=== PATIENT | female | born 1980 | race Two or more races ===

== ENCOUNTER 2025-01-06 20:43 | Emergency (ER) | payer MEDICAID, SELFPAY ==
[2025-01-06 20:43] VITALS: BMI 20.4
[2025-01-06 22:08] VITALS: BP 131/83; PULSE 99; RESP 20; TEMP 36.9; O2SAT 96
--- NOTE | 2025-01-06 22:42 | PD.EDBACK ---
ED Back Injury Pain RME/HPI General Chief Complaint: Back Pain/Injury Stated Complaint: LOWER BACK PAIN , SENT BY PMD Time Seen by Provider: 01/06/25 21:28 Arrival date/time: 01/06/25 20:43 44-year-old female sent in by primary care provider for lower back pain. Patient states that while at the primary care provider's office she tested positive for strep pharyngitis as she was being evaluated for sore throat and bodyaches. Patient also states that she had a urine analysis which was negative. She denies any dysuria urinary urgency or frequency diarrhea constipation blood or mucus in stools. Patient states that she has been taking Tylenol and ibuprofen with no improvement of her symptoms Limitations: no limitations Related Data Home Medications ?Medication ?Instructions ?Recorded ?Confirmed metformin 500 mg tablet 500 mg PO QDAY Diabetes Type 2 09/02/22 08/29/23 lisinopril 20 mg tablet 20 mg PO QDAY Hypertension 01/03/23 08/29/23 ferrous sulfate 325 mg (65 mg 325 mg PO QDAY 08/29/23 08/29/23 iron) tablet (FeroSul) folic acid 1 mg tablet 1 mg PO QDAY 08/29/23 08/29/23 Previous Rx's ?Medication ?Instructions ?Recorded ondansetron 4 mg disintegrating 4 mg PO Q8H PRN nausea and 12/18/23 tablet vomiting #20 tabs cephalexin 500 mg capsule 500 mg PO Q12H 10 days #20 caps 01/07/25 Allergies Allergy/AdvReac Type Severity Reaction Status Date / Time No Known Allergies Allergy Verified 12/18/23 17:55 Review of Systems Constitutional Constitutional: Reports chills, Reports fever(s) and Denies headache(s) ENT Ears, Nose, Mouth, and Throat: Denies dizziness, Denies headache(s), Reports sore throat and Denies throat swelling Cardiovascular Cardiovascular: Denies chest pain and Denies dyspnea Respiratory Respiratory: Denies cough and Denies dyspnea Gastrointestinal Gastrointestinal: Reports abdominal pain (mild), Denies hematochezia, Denies loose stools, Reports nausea and Reports vomiting Genitourinary Genitourinary: Denies dysuria, Reports flank pain and Denies pelvic pain Musculoskeletal Musculoskeletal: Reports back pain and Reports myalgias Integumentary/Breasts Skin/Breast: Denies rash and Denies skin pain Neurologic Neurologic: Denies dizziness and Denies headache(s) Allergic/Immunologic Allergic/Immunologic: Denies throat swelling Past Medical History Past Medical History NEUROLOGIC: Negative Neurological Disorders CARDIAC: Positive Cardiac Disorders and Hypertension; Negative Congestive Heart Failure RESPIRATORY: Negative Chronic Obstructive Pulmonary Disease (COPD) or Asthma GASTROINTESTINAL: Positive Gastrointestinal Disorders and Pancreatitis GENITOURINARY: Negative Genitourinary Disorders or Renal Disease MUSCULOSKELETAL: Negative Musculoskeletal Disorders ENDOCRINE: Positive Endocrine Disorders and Diabetes Mellitus Type 2; Negative Diabetes Mellitus Type 1 HEMATOLOGIC: Positive Blood Disorders and Anemia; Negative Sickle Cell Disease OTHER HISTORY: Positive Hospitalization; Negative Autoimmune Disease, Down Syndrome, Developmental Delay, Falls, Blood Transfusions, Anesthesia Reactions, Chicken Pox, Measles or Mumps Family History FAMILY HISTORY: Negative Family Respiratory Disorders, Family Cardiac Disorders or Family Gastrointestinal Problems Social History SMOKING STATUS: Never smoker SECOND HAND EXPOSURE: No SUBSTANCE USE: does not use 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 ED Exam General Limitations: Present no limitations General appearance: Present alert and in no apparent distress Head Head exam: Present atraumatic Eye Eye exam: Present normal appearance, PERRL and EOMI ENT ENT exam: Present normal exam, normal oropharynx and mucous membranes moist Neck Neck exam: Present normal inspection, full ROM and trachea midline Chest Chest inspection: Present normal inspection and symmetric chest wall rise Respiratory Respiratory exam: Present normal lung sounds bilaterally Cardiovascular Cardiovascular exam: Present regular rate, normal rhythm and normal heart sounds Abdominal Exam Abdominal exam: Present soft, tenderness and normal bowel sounds; Absent distention, guarding, rebound, ascites, mass or bruit Abdominal tenderness: Present diffuse and mild Extremities Exam Extremities exam: Present normal inspection and full ROM Back Exam Back exam: Present normal inspection, full ROM and CVA tenderness (R); Absent CVA tenderness (L) Neurological Exam Neurological exam: Present alert, oriented X3 and CN II-XII intact Psychiatric Psychiatric exam: Present normal affect and normal mood Skin Skin exam: Present warm, dry, intact and normal color Course Course Course Narrative: 44-year-old female sent in by primary care provider for lower back pain fever and chills and a sore throat. Patient's COVID and influenza test are negative CBC and CMP with no significant changes hCG is negative strep pharyngitis is negative urinalysis indicative of acute cystitis abdominal CT negative for evidence of stones. Patient received a gram of Rocephin IM she is stable nontoxic-appearing with stable vital signs she will be discharged home with oral antibiotics advised on hydrating and following up with primary care provider in 48 hours. Patient is advised to return to the emergency department if symptoms should worsen. I discussed this care plan with Dr. Hathaway and he agreed with the plan Quality Measures none Orders Category Date Time Status Bedside COVID-19 Antigen Test NOW Care 01/06/25 22:41 Active Bedside Influenza A&B Antigen Test NOW Care 01/06/25 22:[address] abdomen pelvis wo con Stat Exams 01/06/25 22:56 Taken CBC Stat Lab 01/07/25 02:28 Completed CMP [Comprehensive Metabolic Panel] Stat Lab 01/07/25 02:28 Completed HCG Qualitative,Urine Stat Lab 01/06/25 23:25 Completed Strep A Rapid Stat Lab 01/06/25 23:00 Completed UA, C/S IF [Urinalysis, C/S if Indicated] Stat Lab 01/06/25 23:25 Completed Urine Culture Stat Lab 01/06/25 23:25 Received Metoclopramide Inj [Reglan Inj] Med 01/06/25 23:42 Discontinued 10 mg IM X1 ONE Promethazine Inj [Phenergan Inj] Med 01/06/25 22:55 Discontinued 12.5 mg IM X1 ONE cefTRIAXone [Rocephin] 1,000 mg Med 01/07/25 03:57 Discontinued Lidocaine 1% 20 ml [Xylocaine 1% 20 ML] 2.1 ml IM X1 Vital Signs Vital signs: Vital Signs Temperature 98.5 F 01/06/25 22:08 Pulse Rate 99 01/06/25 22:08 Respiratory Rate 20 01/06/25 22:08 Blood Pressure 131/83 H 01/06/25 22:08 Pulse Oximetry (%) 96 01/06/25 22:08 Oxygen Delivery Method Room Air 01/06/25 22:08 Back Pain / Injury Patient data External records reviewed:: None Clinical information provided by:: patient Social determinants that could affect healthcare access:: none Patient has the following chronic illnesses:: DM How is presenting disease/condition affected by chronic disease/condition?: uneffected by Evaluation data The following diagnostics were reviewed and interpreted by me:: lab results and radiology exam(s) Lab and/or radiology exams considered but not ordered:: none Interpretation Summary: CMP CBC unremarkable, urinalysis indicative of UTI, strep test negative Medications / Prescriptions Medications or Prescriptions considered but not ordered:: None Medication administrations:: Medication Administration History Discontinued Medications Ceftriaxone Sodium 1,000 mg/ (Lidocaine HCl 2.1 ml) 0 mg IM X1 ONE Stop: 01/07/25 03:58 Last Admin: 01/07/25 04:24 Dose: 2.1 mg Documented By: EDWARD Metoclopramide HCl (Metoclopramide Inj 5 Mg/Ml Vial 2 Ml) 10 mg IM X1 ONE; Protocol Stop: 01/06/25 23:43 Last Admin: 01/07/25 00:16 Dose: 10 mg Documented By: NAHOMY Promethazine HCl (Promethazine Inj 25 Mg/Ml Vial) 12.5 mg IM X1 ONE; Protocol Stop: 01/06/25 22:56 Last Admin: 01/07/25 00:16 Dose: Not Given Documented By: NAHOMY Non-Admin Reason: Discontinued As above Consultations Consultation(s) initiated? (list below): No Diagnosis Most likely diagnosis given after review of the tests above:: Acute cystitis Admission Indicated Admission indicated?: not indicated Admission Request Was there a request for admission?: No Disposition Plan Disposition Plan: Discharge Discharge Attestation Discharge Attestation: The patient and all family members were given an opportunity to ask questions and understood the discharge instructions. Discharge instructions specifically effects, indications for sooner follow up or return to the emergency department, and the expected course of current diagnosis. Patient condition: Stable Discharge Plan Plan Patient Disposition: HOME (Self Care) Prescriptions/Referrals Prescriptions/Med Rec: New cephalexin 500 mg capsule 500 mg PO Q12H 10 Days Qty: 20 0RF No Action metformin 500 mg Tablet 500 mg PO QDAY ferrous sulfate [FeroSul] 325 mg (65 mg iron) tablet 325 mg PO QDAY Patient Comments: take 1 tablet by mouth every other day folic acid 1 mg tablet 1 mg PO QDAY Patient Comments: take 1 tablet by mouth once daily lisinopril 20 mg Tablet 20 mg PO QDAY ondansetron 4 mg tablet,disintegrating 4 mg PO Q8H PRN (Reason: nausea and vomiting) Qty: 20 0RF Referrals: Jerome Mercado MD [Primary Care Provider, Family Practice] - In 1 week Problem List Clinical Impression: UTI (lower urinary tract infection) Patient/Caregiver Discharge Instructions Discharge Activity: activity as tolerated Education Materials: ED CYSTITIS Female Adult Additional Instructions: Take medication as directed drink plenty of water follow-up with your primary care provider in 48 hours for reevaluation. If symptoms worsen return to emergency department immediately Print Language: Thai Stand Alone Forms: [employer] Award Info., Patient Portal Info Letter
--- NOTE | 2025-01-06 22:56 | XR_ITS ---
Examination: CT abdomen and pelvis without contrast. Coronal 3-D reconstructions. Sagittal 2-D reconstructions. Date and time of exam: 19 December 2019, 2024, 0108 hours INDICATIONS: Abdominal pain lower back pain onset today flank pain beginning January 06, 2025 CTDI: vol (mGy): 4.60 DLP: (mGycm): 223 Technique: Axial images of the abdomen have been obtained, 3 mm slice thickness Intravenous contrast material has not been administered. Low dose protocols were performed. One or more of the following dose reduction techniques were used; automated exposure control, adjustment of the mA and/or KV according to patient size, use of iterative reconstruction technique. Findings: Diffuse fatty infiltration throughout the liver with mild hepatomegaly Absent gallbladder No pancreatic mass Spleen is not enlarged No renal or ureteral calculi, no hydronephrosis Aorta normal size Normal appendix No bowel obstruction No pelvic mass Contracted urinary bladder IMPRESSION: Diffuse significant fatty infiltration throughout the liver No renal or ureteral calculi No definite findings of colitis on this noncontrast study
[2025-01-06 23:35] LABS: Strep A Rapid Negative (Negative)
[2025-01-07] MEDS: METOCLOPRAMIDE INJ 5 MG/ML VIAL 2 ML 10 MG IM (00:16)
[2025-01-07 00:24] LABS: Collection Type, Urine Clean Catch
[2025-01-07 00:32] LABS: HCG Qualitative,Urine Negative
[2025-01-07 00:52] LABS: Bacteria,Urine Rare; Bilirubin,Urine Negative (Negative); Blood,Urine Negative (Negative); Clarity,Urine Turbid (Clear/Hazy); Color,Urine Yellow (Lt Yel-Yel); Glucose, Urine 3+ (Negative); Hyaline Casts,Urine 2 /hpf (0-1); Ketones,Urine Negative (Negative); Leukocyte Esterase,Urine Positive (Negative); Nitrite,Urine Negative (Negative); PH,Urine 6.0 (5.0-7.0); Protein,Urine 1+ (Neg - Trace); RBC,Urine 4 /hpf (0-3); Specific Gravity,Urine 1.033 (1.001-1.035); Squamous Epithelial Cell,Urine 1 /hpf (0-5); Urobilinogen,Urine 2.0 mg/dL (0.0-1.0); WBC,Urine 12 /hpf (0-5)
[2025-01-07 01:09] LABS: Culture Indicated,Urine Yes
--- NOTE | 2025-01-07 02:12 | PRELIM_ITS ---
CT scan of the abdomen and pelvis without intravenous contrast (axial sections with sagittal and coronal reformats) January 07, 2025 0108 hours Clinical History: Left back and flank pain No prior study is available for comparison. Findings: The evaluation is slightly limited due to motion artifact. The lung bases are clear. Fatty infiltration of the liver is noted. The gallbladder is surgically absent. Calcific densities are seen in the spleen, likely representing old calcified granulomas. The pancreas, kidneys and adrenals are unremarkable on this noncontrast study. No evidence of bowel obstruction. There is mild thickening versus underdistention of the ascending, transverse and descending colon. The appendix is within normal limits. The urinary bladder is not well distended. There is no free fluid or free air.There is no adenopathy. The osseous structures are unremarkable. Impression: No evidence of renal/ureteric calculus or hydroureteronephrosis. Mild thickening versus underdistention of the ascending, transverse and descending colon. In the appropriate clinical setting, the possibility of mild colitis cannot be excluded. Other findings as described above. Report Electronically Signed By: Nicholas Mendez 01/07/2025 2:11:19 AM [EST]
[2025-01-07 02:41] LABS: Basophils # (Auto) 0.0 Thou/mm3 (0.0-0.2); Basophils % (Auto) 0 % (0-2.5); Eosinophils # (Auto) 0.0 Thou/mm3 (0.0-0.5); Eosinophils % (Auto) 0 % (0-10); Hematocrit 27.4 % (36.0-46.0); Immature Granulocytes Auto 0.06 Thou/mm3 (0.00-0.00); Lymphocytes # (Auto) 1.2 Thou/mm3 (1.0-4.8); Lymphocytes % (Auto) 10 % (10-50); Mean Corpuscular HGB Conc 31.8 g/dl (31.0-37.0); Mean Corpuscular Hemoglobin 23.8 pg (25.0-35.0); Mean Corpuscular Volume 75 fL (80-100); Monocytes # (Auto) 1.4 Thou/mm3 (0.0-0.8); Monocytes % (Auto) 11 % (0-12); Neutrophils # (Auto) 10.1 Thou/mm3 (1.8-7.7); Neutrophils % (Auto) 79 % (37-80); Nucleated Red Blood Cell # 0.00 Thou/mm3 (0.00-0.00); Nucleated Red Blood Cell % 0 /100 WBC (0); Platelet Count 326 Thou/mm3 (140-440); RDW Standard Deviation 44.4 fL (36.4-46.3); Red Blood Count 3.65 Miln/mm3 (4.00-5.20); White Blood Count 12.8 Thou/mm3 (3.6-11.0)
[2025-01-07 03:09] LABS: Alanine Aminotransferase 39 U/L (10-49); Albumin, Serum 4.5 gm/dL (3.5-5.0); Albumin/Globulin Ratio 1.8 (1.2-2.2); Alkaline Phosphatase 87 U/L (46-116); Anion Gap 11 (7-16); Aspartate Amino Transferase 34 U/L (0-34); BUN/Creatinine Ratio 14 Ratio (12-20); Bilirubin,Total 1.9 mg/dL (0.3-1.2); Blood Urea Nitrogen 10 mg/dL (9-23); Calcium 9.1 mg/dL (8.3-10.6); Calcium (Corrected) 9.1 mg/dL (8.5-10.1); Carbon Dioxide 29.5 mMol/L (20.0-31.0); Chloride 92 mMol/L (98-107); Creatinine (Component) 0.7 mg/dL (0.6-1.3); Estimated Creatinine Clearance 68.5 mL/min (>60); Globulin 2.5 gm/dL (2.3-3.5); Glucose 226 mg/dL (74-106); Osmolality,Calculated 270 (275-295); Potassium 3.8 mMol/L (3.4-5.1); Sodium 132 mMol/L (136-145); Total Protein 7.0 gm/dL (5.7-8.2); eGFR > 60 See Note
[2025-01-07 03:21] LABS: Hemoglobin 8.7 g/dL (12.0-16.0)
[2025-01-07] MEDS: cefTRIAXone 1,000 MG, LIDOCAINE 1% 20 ML 2.1 ML IM (04:24)
[2025-01-07 05:15] VITALS: BP 113/74; PULSE 91; RESP 16; TEMP 37.2; O2SAT 97
== END 2025-01-07 05:16 | disposition home or self-care (01) ==
PROVIDERS: Physician Assistant; Emergency Provider Emergency Medicine; PCP Family Medicine
DX: N39.0 Urinary tract infection, site not specified (principal); J02.0 Streptococcal pharyngitis
CPT/HCPCS: 36415; 74176; 80053; 81001; 81025; 85025; 87077; 87086; 87186; 87400; 87651; 87811; 96372; 99283; J0696; J2765; J3490